=== PATIENT | female | born 2000 | race Caucasian/White ===

== ENCOUNTER 2024-06-24 02:52 | Inpatient (IN) | payer SELFPAY ==
[2024-06-24] VITALS (19 sets, daily range): BP systolic 95–132; BP diastolic 49–81; PULSE 67–96; RESP 14–18; TEMP 36.2–36.8; O2SAT 94–100; BMI 30.6
[2024-06-24] MEDS: Lactated Ringers 1,000 ML 50 ML IV ×2 (02:40→03:55)
--- NOTE | 2024-06-24 03:15 | HP.PCM.OB_ITS ---
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 The patient has only received care with her meter/relay technician. She has no records. She reports being in labor for about 24 hours and rupturing for clear fluid at home tonight. Per the meter/relay technician she was 8 cm dilated about 1 hour prior to her calling L&D. She remains 8 cm on admission. She offers no complaints other than pain and strongly desires an epidural. PFSH PFSH Allergy/AdvReac Type Severity Reaction Status Date / Time No Known Allergies Allergy Verified 06/24/24 02:38 NST FHR Rate Baby A Baseline: 135 Variability:: Minimal Accelerations:: None Decelerations:: Late and Variable Uterine Activity:: ctx q 4-5 min Vital Signs Vital Signs Vital Signs: 06/24/24 02:37 06/24/24 02:37 06/24/24 02:37 Temperature 98.2 F Temperature Source Temporal Pulse Rate Respiratory Rate 16 Blood Pressure BP Systolic BP Diastolic 06/24/24 02:42 06/24/24 02:42 Temperature Temperature Source Pulse Rate 78 Respiratory Rate Blood Pressure 132/81 H BP Systolic 132 BP Diastolic 81 Weight Weight: 167 lb 6 oz Body Mass Index (BMI) 30.6 Labs Labs Labs: Blood Type Pending Antibody Screen Pending Hct 39.6 % (37-47) Hgb 13.5 g/dL (12.0-15.0) Syphilis Total Ab Pending Rubella IgG Antibody Pending Hep Bs Antigen Pending Hepatitis C Antibody Pending HIV 1&2 Antibody Pending Assessment & Plan (1) No care in current : (2) Active labor: PLAN: Patient presents from home with a meter/relay technician and no care at 8 cm dilated and ruptured requesting an epidural for pain management. She has no care and no records to review. The patient was reported to be 8 cm and ruptured at home prior to arrival to the hospital. On exam she is 8 cm dilated 80% effaced at 0 station with caput and cervical swelling noted. heart rate tracing shows minimal variability with variable and late decelerations. A fluid bolus was started and position changes were started. Scalp stim was attempted with no heart rate acceleration. Discussed with patient the recommendation for delivery given intolerance to labor. Discussed concern for wellbeing. Discussed risks of the section including but not limited to bleeding, need for a blood transfusion, infection, injury to surrounding structures. The patient requested that the nurse and I leave the room on 2 occasions to discuss plan of care, as she initially was declining a section and requested an epidural which she understood was AGAINST MEDICAL ADVICE. CBC was still in process at the time. I stepped out of the room on 2 occasions for the patient to discuss plan of care with her and meter/relay technician. Upon arrival to the room questions were answered, and the patient requested to proceed with a section. Discussed r/b/a to a section and consent obtained. She desired to proceed given intolerance to labor. (3) heart rate decelerations affecting management of mother:
[2024-06-24 03:20] LABS: Absolute Lymphocyte Count 1.24 X10^3/uL (0.83-4.51); Absolute Neutrophil Count 20.1 X10^3/uL (2.0-7.7); Basophil# 0.04 X10^3/uL; Basophil% 0.2 % (0-1); Eosinophil# 0.01 X10^3/uL; Hematocrit 39.6 % (37-47); Hemoglobin 13.5 g/dL (12.0-15.0); Lymphocyte # 1.24 X10^3/ul (0.83-4.51); Lymphocyte % 5.4 % (19-41); Mean Corp Hgb Conc 34.1 g/dL (32-36); Mean Corpuscular Hgb 27.6 pg (27.0-32.0); Mean Platelet Vol. 10.7 fl (6.2-12.0); Monocyte# 1.25 X10^3/uL; Monocyte% 5.5 % (0-10); NRBC Flagged by Analyzer 0 % (0-5); Neutrophil # 20.13 X10^3/uL (2.7-7.7); Neutrophil % 88.3 % (47-70); POSITIVE DIFFERENTIAL YES; Platelet Count 310 K/mm3 (150-450); RBC Distribution Width CV 13.7 % (11.6-14.6); RBC Distribution Width SD 39.7 fl (35.1-43.9); Red Blood Count 4.89 M/mm3 (4.2-5.4); White Blood Count 22.8 K/mm3 (4.4-11.0)
[2024-06-24 03:26] LABS: Glucose, Dipstick Normal (Normal); Leukocyte Esterase-Dipstick 25 /ul (Negative); Nitrite-Dipstick Negative (Negative); Occult Blood-Urine 150 /ul (Negative); Protein-Dipstick 100 mg/dl (Negative); Urine Bilirubin Dipstick Negative (Negative); Urine Urobilinogen Normal (Normal)
[2024-06-24 03:29] LABS: Differential Indicated SCAN CRITERIA MET
[2024-06-24 03:30] LABS: Ketone-Dipstick 150 mg/dl (Negative)
[2024-06-24] MEDS: Acetaminophen 500 MG Tablet PO (03:30)
[2024-06-24 03:42] LABS: Amphetamine Urine VISTA NEGATIVE (<1000 ng/mL); Barbiturate Urine VISTA NEGATIVE (< 200 ng/mL); Benzodiazepine Urine VISTA NEGATIVE (< 200 ng/mL); Cocaine Urine VISTA NEGATIVE (< 300 ng/mL); Ecstacy Urine VISTA NEGATIVE (< 500 ng/mL); Methadone Urine VISTA NEGATIVE (< 300 ng/mL); PCP Urine VISTA NEGATIVE (< 25 ng/mL); THC Urine VISTA NEGATIVE (< 50 ng/mL); Vista UDS pH Range 5
[2024-06-24 03:45] LABS: Bacteria 3+ /hpf (None Seen); Color, Urine AMBER (Yellow); Red Blood Cells-Urine 50-100 SEEN /hpf (0-5); Squamous Epithelial Cells - UA 0-5 SEEN /hpf (5-10); Urine Clarity Sl Cldy (Clear); White Blood Cells 5-10 SEEN /hpf (0-5)
[2024-06-24 03:46] LABS: Mucous, Urine 2+ /hpf (<or=2+)
[2024-06-24] MEDS: Sodium Citrate/Citric Acid 30 ML UDC PO (03:47)
[2024-06-24] MEDS: Cefazolin 2 GM in Syringe IV (03:55)
[2024-06-24] MEDS: Azithromycin 500 MG in 0.9% Normal Saline (250mL Bag) 250 ML 250 MG IV (04:00)
[2024-06-24 04:08] LABS: HIV - WCH Non-Reactive (Nonreactive); Rubella IgG Reactive (Nonreactive); Syphilis Antibodies Non-reactive
[2024-06-24 04:22] LABS: Hepatitis B Surface Antigen Non-Reactive (Nonreactive); Hepatitis C Antibody Non-Reactive (Nonreactive)
[2024-06-24 04:43] LABS: Differential Comment SCANNED
--- NOTE | 2024-06-24 05:04 | OP.PCM_ITS ---
Problems Associated Problem List Diagnoses (1) 39 weeks gestation of : (2) heart rate decelerations affecting management of mother: (3) Active labor: (4) No care in current : (5) Delivery by section: Operative Report (Standard) Operative Information Date of Procedure: 06/24/24 Pre-Operative Diagnosis: 39 week gestation, no care, intolerance to labor Post-Operative Diagnosis: As above Surgery/Procedure Performed: PLTCS via pfannenstiel incision securities underwriter: Yes Guest Room Inspector: Mayra YOUNG Tasks completed by speech correction assistant: Retracting and Other (Delivery of ) Type of Anesthesia: Spinal Procedure Start Time: 04:14 Procedure Stop Time: 04:58 Select all DRAINS/GRAFTS/IMPLANTS that apply: None Special Medications: None Estimated Blood Loss: 500 Fluids Replaced: See anesthesia record Specimen collected: Yes Description of specimen(s) removed: Placenta Description of surgery: Indications: The patient 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 She was 8 cm with cervical swelling and caput present on admission. Meconium stained fluid noted. She received no care in the . The core layer machine operator reported bringing the patient in as she was not making cervical change and not coping with pain well. FHT s howed minimal variability with variable and late decelerations despite scalp stimulation, fluid bolus, and position changes. Patient consented to a section given intolerance to labor despite resuscitative measures. The patient reported concern for cervical swelling and minimal change when at home as well, however labor progression unknown given no care and attempted home delivery. Procedure: The patient was taken to the operating room where spinal anesthesia was found to be adequate. She was prepped and draped in the dorsal supine position with a leftward tilt. A Pfannenstiel skin incision was made using a scalpel and carried down to the underlying layer of fascia. The fascia was incised in the midline. The fascial incision was extended laterally using Clement scissors. The fascia was tented off the rectus muscles and dissected sharply in a cephalad and caudad direction. The rectus muscles were the midline. The peritoneum was entered with a combination of sharp and blunt dissection with good visualization of the bladder. The peritoneal incision was extended with lateral traction. A bladder blade was inserted. A low transverse incision was made on the uterus with a scalpel. The uterine incision was extended with cephalad and caudad traction. Meconium stained fluid was noted upon entry into the uterus. The baby was in direct occiput posterior position. The head was flexed and delivered easily through the hysterotomy. The shoulders and body of the infant delivered without any traction, force, or delay. A viable female was delivered. The cord was clamped and cut after some delay. The was handed off to the awaiting nursery staff. The placenta was removed with manual extraction. The uterus was cleared of all clot and debris. The uterus was exteriorized. IV Pitocin was running. 1-0 Vicryl was used in a running locked fashion to close the hysterotomy. Several additional [id number] sutures were placed for hemostasis at the angles. Bilateral adnexa were normal-appearing. Uterus was placed back to the abdomen. Gutters were cleared of all clot and debris. Hemablast was placed over the hysterotomy and good hemostasis was noted. The peritoneum was unable to be reapproximated. The subfascial space was noted to be hemostatic. The fascia was closed with STRATAFIX in a running fashion. The subcutaneous space was irrigated and noted to be hemostatic. The subcutaneous space was reapproximated with 3-0 Vicryl. The skin was closed with 4 Monocryl in a subcuticular fashion. A dressing was placed. Instrument, sharp, sponge counts were correct and the patient was taken to the recovery in stable condition. Surgical Findings: VFI with Apgars 8, 9. Meconium stained fluid. Infant in OP position. Normal appearing uterus and bilateral adnexa. Complications Complications: No Admit VTE Documentation VTE Present on Admission: No VTE Mechan Device Prophylaxis: SCD's
[2024-06-24] MEDS: Ketorolac 30 MG/ML Syringe IV ×4 (06:01→23:44)
[2024-06-24] MEDS: 0.9% Saline Lock 10 ML Syringe IV ×2 (06:01→12:18)
--- NOTE | 2024-06-24 06:06 | PLAC_PTH ---
PATIENT: OMA CARVAJAL LOC: [facility] U#:[id number] AGE/SX: 23/F ROOM: WP004 RE06/24/[address]: Dr. Traci Landeros DO : 2000 BED: 1 DIS: 06/25/2024 SPEC #: [id number] RECD: 06/24/24 06:15 STATUS: KAYE KEYON #: [id number] GEORGE: 06/24/24 06:[address]: Traci Landeros DEPT: SURGICAL PATHOLOGY RECD BY: Bandar Flannery Tissues: Placenta, NOS Procedures: Surgery Specimen Level V HEADER OPERATION: Primary section PRE-OP DIAGNOSIS: section TISSUE SUBMITTED: Placenta MICROSCOPIC DIAGNOSIS Placenta: Placental disc - third trimester placenta (440 gm). - a focal area of infarction with calcifications. Membranes - mild acute chorioamnionitis. Umbilical cord - three blood vessels and no pathologic diagnosis. 06/27/2024 MICROSCOPIC DESCRIPTION Slides are reviewed. GROSS DESCRIPTION SPECIMEN: PLACENTA / CLINICAL INFORMATION: A. Weight: 3.05 kg B. Gestational Age: 39 weeks C. Sex: Female PLACENTAL WEIGHT (POST FIXATION): 440 gm PLACENTAL DIMENSIONS: 16 x 16 x 3 cm PLACENTAL SHAPE: Usual ovoid PLACENTAL WEIGHT FOR GESTATIONAL AGE: Within 10-99th percentile. MEMBRANES - Detached from placenta A. Insertion: Marginal B. Site of rupture from edge: Membranes are detached from the placental disc, distance cannot be assessed. C. Color of membrane: Tabor-stokes D. Abnormalities: None UMBILICAL CORD - Present A. Color: Tabor-stokes B. Insertion: Marginal C. Length: 40 cm D. Diameter: 1 cm E. Number of vessels: Three F. Abnormalities: None PLACENTAL DISC - Present A. Color of surface: Tabor-stokes B. surface abnormalities: None C. Maternal cotyledons: Intact with minimal tears D. Attached retro placental clot: No clot E. Cut surface: Dark red and spongy F. Lesions: An indurated area in the peripheral portion of placenta measuring 4 x 3 x 1 cm G. Separate clot: Absent SECTIONS SUBMITTED: 1. Membrane roll 2. Cord, maternal end 3. Cord, end 4. Placental disc, and maternal surfaces, lesion 5. Placental disc, and maternal surfaces 6. Placental disc, and maternal surfaces /JARAD: haresh 06/26/24 TC:5 CPT: 90743
[2024-06-24 06:29] LABS: Pathology Specimen OB SEE PATHOLOGY REPORT
[2024-06-24] MEDS: Senna/Docusate Sodium 1 Tablet PO (09:45)
[2024-06-24] MEDS: Acetaminophen 500 MG Tablet 1000 MG PO ×3 (09:45→22:12)
[2024-06-25 05:00] VITALS: BP 117/71; PULSE 85; RESP 16; TEMP 36.6; O2SAT 100
[2024-06-25] MEDS: Acetaminophen 500 MG Tablet 1000 MG PO ×2 (05:15→12:23)
[2024-06-25 05:55] LABS: Hematocrit 33.9 % (37-47); Hemoglobin 10.9 g/dL (12.0-15.0); Mean Corp Hgb Conc 32.2 g/dL (32-36); Mean Corpuscular Hgb 27.1 pg (27.0-32.0); Mean Corpuscular Volume 84.3 fL (81-99); Mean Platelet Vol. 10.3 fl (6.2-12.0); Platelet Count 237 K/mm3 (150-450); RBC Distribution Width CV 13.9 % (11.6-14.6); RBC Distribution Width SD 42.9 fl (35.1-43.9); Red Blood Count 4.02 M/mm3 (4.2-5.4); White Blood Count 15.3 K/mm3 (4.4-11.0)
[2024-06-25 06:16] LABS: Scan Indicated on CBC? Y/N NO
[2024-06-25] MEDS: Ibuprofen 600 MG Tablet PO ×2 (06:48→12:23)
--- NOTE | 2024-06-25 07:21 | PCM.PN.OB ---
Subjective Subjective Patient is doing well. Pain is well-controlled. She has been ambulating and voiding without difficulty. She is tolerating a diet without nausea or vomiting. She denies lightheadedness, dizziness, chest pain, shortness of breath, leg pain. She offers no complaints this morning and wants to go home. Lochia normal and she is breast-feeding. Objective Data Objective Data Vital Signs: Vital Signs Temp Pulse Resp BP Pulse Ox O2 Del Method 97.8 F 85 16 117/71 100 Room Air 06/25/24 05:00 06/25/24 05:00 06/25/24 05:00 06/25/24 05:00 06/25/24 05:00 06/25/24 05:00 Oxygen Delivery Method Room Air Weight: 167 lb 6 oz Body Mass Index (BMI) 30.6 Intake & Output: Intake and Output for Last 24 Hours 06/23/24 06/24/24 06/25/24 23:59 23:59 23:59 Intake Total 2877.5 / 2877.5 Output Total 3750 / 3750 800 / 800 Balance -872.5 / -872.5 -800 / -800 Lab / Micro Data 06/25/24 05:40 Labs: Laboratory Results - last 24 hr 06/25/24 05:40: WBC 15.3 H, RBC 4.02 L, Hgb 10.9 L, Hct 33.9 L, MCV 84.3, MCH 27.1, MCHC 32.2 D, RDW Std Deviation 42.9, RDW Coeff of Eugenia 13.9, Plt Count 237, MPV 10.3 Micro: Microbiology 06/24/24 03:05 Urine, Clean Catch Chlamydia/Neisseria (PCR) - Final Physical Exam Const alert and no apparent distress General Appearance: comfortable HEENT normocephalic Resp normal respiratory effort GI soft to palpation and non-distended GI Narrative: ATTP, non acute, dressing in place Extremity normal to inspection and no calf tenderness Assessment & Plan (1) Delivery by section: PLAN: POD# 1 s/p section and doing well. Desires discharge. Discharge instructions reviewed. In talking to the patient she reports she was 8 cm at home for at least 5 hours. Discussed recommendation for a repeat section with next delivery. Discussed risks with home delivery, and recommend a hospital delivery.
--- NOTE | 2024-06-25 07:29 | DCINST_ITS ---
Discharge Instructions Diet Discharge Diet: No restrictions DC O2, CPAP, BIPAP needs Home O2 Discharge instructions: No Dressing / Incision Discharge Activity: May Drive (once you are strong enough to slam on a brake or turn a steering wheel sharply) and May Shower May resume sexual activity in: 6 weeks (nothing in the vagina and no soaking in water for 6 weeks) Ice area for (Minutes): 15 Weight Bearing Status: Weight bearing as tolerated Lifting Restrictions: nothing heavier than baby Dressing / Incision Call your doctor if your incision/area has: Continuous Slow Oozing, Sudden Increased Bleeding, Increased Pain/ Swelling, Increased Redness, Foul Smelling Discharge and Swelling at the incision site Call your doctor if you observe: Fever of 101 or Higher, Coldness, Increased Pain, Numbness or Tingling, Inability to urinate, Inability to have a bowel movement, Using more than 1 pad per hour, Shortness of breath, Dizziness, Swelling in the ankles, Chest pain, Increased palpitations (irregular heartbeat), Calf discomfort and Uncontrolled pain Suture Line Care: Avoid Pulling/Pushing and Avoid Pinching/Bending Remove Dressing in: 5 days Cleanse incision/area with: Soap & Water Follow Up Care Please Follow Up With: Traci Landeros DO When: 1 week for incision check 6 weeks for a visit Test Results: Test results from this visit will be discussed in further detail at your follow- up appointment, if applicable. Discharge Plan Admission Admit Date/Time: 06/24/24 02:52 Primary Reason for Your Visit: Delivery Attending Provider: Traci Landeros Instructions Patient Instructions: After a Discharge Orders/Prescriptions Prescriptions: New ibuprofen 600 mg tablet 600 mg PO Q6H PRN (Reason: pain) Qty: 30 0RF docusate sodium [Colace] 100 mg capsule 100 mg PO BID PRN PRN (Reason: constipation) Qty: 30 0RF Disposition Disposition (needs filled in before D/C Order can be placed): Home, Self Care
[2024-06-25 08:11] VITALS: BP 125/70; PULSE 99; RESP 16; TEMP 37.1; O2SAT 99
[2024-06-25] MEDS: Senna/Docusate Sodium 1 Tablet PO (12:27)
== END 2024-06-25 12:55 | disposition home or self-care (01) | DRG 788 ==
PROVIDERS: Admitting Provider Obstetrics & Gynecology; Referring Provider Obstetrics & Gynecology; Visit Provider Obstetrics & Gynecology
DX: O76 Abnormality in fetal heart rate and rhythm complicating labor and delivery (principal); O77.0 Labor and delivery complicated by meconium in amniotic fluid; Z37.0 Single live birth; Z3A.39 39 weeks gestation of pregnancy
CPT/HCPCS: 59025; 59050; 80307; 81001; 85025; 85027; 86703; 86762; 86780; 86803; 86850; 86900; 86901; 87340; 87491; 87591; 88307; 99221; A4216; G0378; J2405